=== PATIENT | male | born 1955 | race Caucasian/White ===

== ENCOUNTER 2022-10-24 04:11 | Inpatient (IN) | payer OTHER ==
[2022-10-24 05:33] LABS: ALT (SGPT) 17 U/L (8-55); AST (SGOT) 40 U/L (5-34); Albumin 4.2 g/dL (3.4-4.8); Alkaline Phosphatase 133 U/L (40-110); Anion Gap 15 mmol/L (10-20); BUN (Urea Nitrogen) 21 mg/dL (8.4-25.7); Bilirubin, Total 0.9 mg/dL (0.2-1.2); Calc. Creatinine Clearance 0 mL/min (70-130); Carbon Dioxide 20 mmol/L (23-31); Chloride 82 mmol/L (98-107); Estimated GFR 57; Globulin 2.8 g/dL (2.4-3.5); Glucose 95 mg/dL (80-115); Potassium 3.8 mmol/L (3.5-5.1)
[2022-10-24 05:34] LABS: Sodium 113 mmol/L (136-145)
[2022-10-24 09:00] LABS: Anion Gap 16 mmol/L (10-20); BUN (Urea Nitrogen) 20 mg/dL (8.4-25.7); Calc. Creatinine Clearance 69 mL/min (70-130); Calcium 8.7 mg/dL (7.8-10.44); Carbon Dioxide 18 mmol/L (23-31); Chloride 83 mmol/L (98-107); Estimated GFR 68; Glucose 85 mg/dL (80-115); Potassium 3.6 mmol/L (3.5-5.1)
[2022-10-24 09:23] LABS: Sodium 113 mmol/L (136-145)
[2022-10-24] MEDS ORDERED: Sodium Chloride 3% 500 ML IVPB SCH (11:00)
[2022-10-24] MEDS ORDERED: Morphine 2 MG/ML VIAL ONE (11:05)
[2022-10-24] MEDS: Morphine 2 MG/ML VIAL SLOW IVP PRN (11:20)
[2022-10-24 11:23] LABS: Anion Gap 14 mmol/L (10-20); BUN (Urea Nitrogen) 19 mg/dL (8.4-25.7); Calc. Creatinine Clearance 68 mL/min (70-130); Carbon Dioxide 18 mmol/L (23-31); Chloride 84 mmol/L (98-107); Estimated GFR 66; Glucose 94 mg/dL (80-115); Potassium 3.7 mmol/L (3.5-5.1)
[2022-10-24 11:30] LABS: Sodium 112 mmol/L (136-145)
[2022-10-24 13:51] VITALS: BMI 22.1
[2022-10-24 15:13] LABS: Potassium, Urine 21.2 mmol/L; Sodium, Urine Less than 20 mmol/L (Not Available)
[2022-10-24 16:38] LABS: Sodium 117 mmol/L (136-145)
[2022-10-24] MEDS ORDERED: Albuterol 200 PUFF (6.7GM INHALER) INH PRN (19:00)
[2022-10-24] MEDS ORDERED: Loperamide HCl 2 MG CAP PO PRN (19:00)
[2022-10-24] MEDS ORDERED: Acetaminophen 325 MG TAB PO PRN (19:10)
[2022-10-24] MEDS: Baclofen 10 MG TAB PO SCH (21:14)
[2022-10-24] MEDS: Midodrine HCl 5 MG TAB PO SCH (21:14)
[2022-10-24] MEDS: Calcium Carbonate 600 MG + Vit D TAB PO SCH (21:14)
[2022-10-24] MEDS: carBAMazepine 200 MG TAB PO SCH (21:14)
[2022-10-24 21:22] LABS: Sodium 119 mmol/L (136-145)
[2022-10-25] MEDS: Morphine 2 MG/ML VIAL SLOW IVP PRN ×2 (00:39→23:30)
[2022-10-25 06:27] LABS: Anion Gap 12 mmol/L (10-20); BUN (Urea Nitrogen) 19 mg/dL (8.4-25.7); Calc. Creatinine Clearance 58 mL/min (70-130); Calcium 8.6 mg/dL (7.8-10.44); Carbon Dioxide 19 mmol/L (23-31); Chloride 97 mmol/L (98-107); Estimated GFR 59; Glucose 87 mg/dL (80-115); Potassium 3.6 mmol/L (3.5-5.1); Sodium 124 mmol/L (136-145)
[2022-10-25] MEDS: DULoxetine 30 MG CAP PO SCH (08:17)
[2022-10-25] MEDS: Atorvastatin Calcium 40 MG TAB PO SCH (08:17)
[2022-10-25] MEDS: Midodrine HCl 5 MG TAB PO SCH ×3 (08:18→21:05)
[2022-10-25] MEDS: Baclofen 10 MG TAB PO SCH ×3 (08:18→21:05)
[2022-10-25] MEDS: Calcium Carbonate 600 MG + Vit D TAB PO SCH ×2 (08:18→21:04)
[2022-10-25] MEDS: Mometasone 100 MCG/PUFF (1 INHALER) INH SCH ×2 (09:03→18:55)
[2022-10-25 13:23] LABS: Anion Gap 13 mmol/L (10-20); BUN (Urea Nitrogen) 17 mg/dL (8.4-25.7); Calc. Creatinine Clearance 58 mL/min (70-130); Calcium 8.9 mg/dL (7.8-10.44); Carbon Dioxide 20 mmol/L (23-31); Chloride 97 mmol/L (98-107); Estimated GFR 60; Glucose 98 mg/dL (80-115); Potassium 3.6 mmol/L (3.5-5.1); Sodium 126 mmol/L (136-145)
[2022-10-25 13:23] LABS: Sodium 124 mmol/L (136-145)
[2022-10-25 18:27] LABS: Sodium 127 mmol/L (136-145)
[2022-10-25] MEDS: carBAMazepine 200 MG TAB PO SCH (21:04)
[2022-10-26 00:26] LABS: Sodium 130 mmol/L (136-145)
[2022-10-26 04:53] LABS: #Basophils 0.1 thou/uL (0.0-0.2); #Eosinphils 0.1 thou/uL (0.0-0.7); #Lymphocytes 1.3 thou/uL (1.20-3.40); #Monocytes 0.7 thou/uL (0.11-0.59); #Neutrophils 3.2 thou/uL (1.40-6.50); %Basophils 1.1 % (0.0-1.0); %Eosinophils 1.8 % (0.0-10.0); %Lymphocytes 24.7 % (21.0-51.0); %Monocytes 12.3 % (0.0-10.0); %Neutrophils 60.1 % (42.0-75.0); Hemoglobin 12.3 g/dL (14.0-18.0); Mean Corpuscular HGB CONC 35.1 g/dL (32.0-36.0); Mean Corpuscular Hemoglobin 32.8 pg (27.0-31.0); Mean Corpuscular Volume 93.2 fl (78.0-98.0); Platelet Count 180 10x3/uL (130-400); RBC Distribution Width 12.1 % (11.5-14.5); Red Blood Cell (RBC) Count 3.74 mill/uL (4.70-6.10); White Blood Cell (WBC) Count 5.3 10x3/uL (4.8-10.8)
[2022-10-26 05:15] LABS: Anion Gap 12 mmol/L (10-20); BUN (Urea Nitrogen) 19 mg/dL (8.4-25.7); Calc. Creatinine Clearance 57 mL/min (70-130); Calcium 8.7 mg/dL (7.8-10.44); Carbon Dioxide 21 mmol/L (23-31); Chloride 100 mmol/L (98-107); Estimated GFR 58; Glucose 107 mg/dL (80-115); Potassium 3.8 mmol/L (3.5-5.1); Sodium 129 mmol/L (136-145)
[2022-10-26] MEDS: Mometasone 100 MCG/PUFF (1 INHALER) INH SCH ×2 (07:53→18:53)
[2022-10-26] MEDS: DULoxetine 30 MG CAP PO SCH (08:52)
[2022-10-26] MEDS: Calcium Carbonate 600 MG + Vit D TAB PO SCH ×2 (08:52→20:55)
[2022-10-26] MEDS: Midodrine HCl 5 MG TAB PO SCH ×3 (08:53→20:55)
[2022-10-26] MEDS: Atorvastatin Calcium 40 MG TAB PO SCH (08:53)
[2022-10-26] MEDS: Gabapentin 300 MG CAP PO SCH ×2 (08:53→20:55)
[2022-10-26] MEDS: Baclofen 10 MG TAB PO SCH ×3 (08:53→20:55)
[2022-10-26 12:40] LABS: Sodium 132 mmol/L (136-145)
[2022-10-26] MEDS: tiZANidine HCl 4 MG TAB PO SCH ×2 (14:18→20:55)
[2022-10-26] MEDS: carBAMazepine 200 MG TAB PO SCH (20:55)
[2022-10-27 04:55] LABS: #Eosinphils 0.1 thou/uL (0.0-0.7); #Lymphocytes 1.3 thou/uL (1.20-3.40); #Monocytes 0.4 thou/uL (0.11-0.59); #Neutrophils 3.3 thou/uL (1.40-6.50); %Eosinophils 2.5 % (0.0-10.0); %Lymphocytes 24.7 % (21.0-51.0); %Neutrophils 65.8 % (42.0-75.0); Hemoglobin 12.7 g/dL (14.0-18.0); Mean Corpuscular HGB CONC 34.1 g/dL (32.0-36.0); Mean Corpuscular Hemoglobin 32.5 pg (27.0-31.0); Mean Corpuscular Volume 95.3 fl (78.0-98.0); Mean Platelet Volume 6.7 fL (7.4-10.4); Platelet Count 192 10x3/uL (130-400); RBC Distribution Width 12.3 % (11.5-14.5)
[2022-10-27 05:06] LABS: Anion Gap 12 mmol/L (10-20); BUN (Urea Nitrogen) 18 mg/dL (8.4-25.7); Calc. Creatinine Clearance 56 mL/min (70-130); Calcium 8.8 mg/dL (7.8-10.44); Carbon Dioxide 22 mmol/L (23-31); Chloride 100 mmol/L (98-107); Estimated GFR 57; Glucose 139 mg/dL (80-115); Potassium 3.8 mmol/L (3.5-5.1); Sodium 130 mmol/L (136-145)
[2022-10-27] MEDS ORDERED: Ciprofloxacin 500 MG TAB PO SCH (06:00)
[2022-10-27] MEDS: Mometasone 100 MCG/PUFF (1 INHALER) INH SCH (07:22)
[2022-10-27] MEDS: Atorvastatin Calcium 40 MG TAB PO SCH (08:17)
[2022-10-27] MEDS: Baclofen 10 MG TAB PO SCH ×2 (08:17→14:51)
[2022-10-27] MEDS: Calcium Carbonate 600 MG + Vit D TAB PO SCH (08:18)
[2022-10-27] MEDS: Gabapentin 300 MG CAP PO SCH (08:18)
[2022-10-27] MEDS: tiZANidine HCl 4 MG TAB PO SCH ×2 (08:18→14:51)
[2022-10-27] MEDS: DULoxetine 30 MG CAP PO SCH (08:18)
[2022-10-27] MEDS: Midodrine HCl 5 MG TAB PO SCH ×2 (08:19→14:51)
[2022-10-27 12:49] VITALS: BP 102/58; TEMP 96.8
[2022-10-27] MEDS ORDERED: Cipro 250 MG TAB PO SCH (20:00)
== END 2022-10-27 17:45 | DRG 643 ==
LOC: ERS 04:11 → ERHOLD 05:54 → EEVIPCON 05:54 → 2NO 13:21
PROVIDERS: ADMIT Internal Medicine; ATTEND Internal Medicine
DX: E22.2 Syndrome of inappropriate secretion of antidiuretic hormone (principal); G93.41 Metabolic encephalopathy; G82.20 Paraplegia, unspecified; N17.9 Acute kidney failure, unspecified; N39.0 Urinary tract infection, site not specified; I25.10 Atherosclerotic heart disease of native coronary artery without angina pectoris; F17.210 Nicotine dependence, cigarettes, uncomplicated; B96.5 Pseudomonas (aeruginosa) (mallei) (pseudomallei) as the cause of diseases classified elsewhere; E87.8 Other disorders of electrolyte and fluid balance, not elsewhere classified; I12.9 Hypertensive chronic kidney disease with stage 1 through stage 4 chronic kidney disease, or unspecified chronic kidney disease; G89.29 Other chronic pain; M54.9 Dorsalgia, unspecified; R25.2 Cramp and spasm; N18.30 Chronic kidney disease, stage 3 unspecified; R29.6 Repeated falls; Z99.3 Dependence on wheelchair; Z88.2 Allergy status to sulfonamides; Z79.899 Other long term (current) drug therapy; Z79.51 Long term (current) use of inhaled steroids; Z98.1 Arthrodesis status; Z91.81 History of falling; I25.2 Old myocardial infarction
CPT/HCPCS: 36415; 80048; 82436; 83930; 83935; 84133; 84300; 85025; 87077; 87086; 87186; 99284; J2272; J7131